=== PATIENT | male | born 1980 | race Caucasian/White ===

== ENCOUNTER 2024-09-02 17:31 | Emergency (ER) | payer OTHER ==
[~2024-09-02] VITALS: Ht 185.4 cm; Wt 86.3 kg
--- NOTE | 2024-09-02 17:55 | RADIOLOGY REPORT ---
EXAM: XR Right Wrist Complete, 3 or More Views CLINICAL INDICATION: WRIST PAIN RIGHT TECHNIQUE: Frontal, lateral and oblique views of the right wrist. COMPARISON: None FINDINGS: BONES/JOINTS: See below. SOFT TISSUES: Soft tissue swelling without acute fracture. No radiopaque foreign body. OTHER FINDINGS: . IMPRESSION: 1. Soft tissue swelling without acute fracture. 2. If symptoms persist, further evaluation with CT is recommended.
--- NOTE | 2024-09-02 19:51 | Physician Documentation ---
History of Present Illness ~ Chief Complaint: Wrist pain Stated Complaint: WRIST PAIN Time Seen by MD: 19:22 OK to notify your PCP?: Yes Primary Medical Doctor: none Source: patient Mode of Arrival: POV Exam Limitations: no limitations HPI A 43-year-old male who comes in complaining of injury to his right wrist and hand that happened while at work earlier today. The patient was states that he was tightening a large spring on an industrial self closing door that came undone hitting him in the right wrist and hand. Most of his pain is in the distal forearm proximal to the radiocarpal joint where he has swelling. He also has not abrasion of the extensor base of the right small finger. He was having pain with moving his wrist, pronating his forearm and the opening and closing his hand. No active hemorrhaging. Last Tdap is unknown. Denies pain of the proximal forearm or elbow Tetanus within 5 years: No Medication Reconciliation Allergies: Coded Allergies: No Known Allergies (Unverified , 12/22/09) Physical Exam Vital Signs: Temperature: 98.0, Heart Rate: 61, Respiratory Rate: 15, BP: 146/78, Pulse Oximetry: 96, Weight: 86.300 Oxygen Flow Rate: 0 Pulse Oximetry Reflects: adequate oxygenation General Appearance: alert, WD/WN, no apparent distress Wrist To inspection of the right wrist/distal radius and ulna there is edema of the distal forearm most pronounced on the radial aspect. No obvious step-off deformity or crepitus to palpation of the area. The patient was decreased range of motion of the forearm with pronation supination. No issues with flexion- extension of the elbow. Mild tenderness to palpation of the radiocarpal joint without obvious deformity or crepitus. No anatomical snuffbox tenderness. No tenderness to palpation of the carpals with the hand. The right radial pulses 2+ Hand To inspection of the right hand the patient has not abrasion overlying with the extensor aspect of the MCP joint of the small finger. No crepitus deformity palpation of the carpals, metacarpals or distal phalanges. No anatomical snuffbox tenderness. He was decreased range of motion of the hand with opening and closing secondary to subjective pain. Cap refill less than 2 seconds and brisk in the digits of the right hand. Progress Results/Orders Reviewed/noted all lab results: Yes Results/Orders Completed Orders - FRANKI PHAN Tetanus/Pertuss/Diph Acell/Pf (Boostrix (09/02/24 19:45) Vital Signs 09/02/24 17:32 Temp 98.0 Pulse 61 Resp 15 B/P (MAP) 146/78 Pulse Ox 96 O2 Flow Rate 0 EKG/XRAY/CT/US/VASC/MRI Bone/Soft Tissue X-Ray (Ext.) : Interpreted By: self Additional Comment X-ray right wrist three-view interpreted by me: Soft tissue swelling of the evidence of fracture. No dislocation. No obvious radiopaque foreign body Medical Decision Making Findings The patient's hand was quite swollen from in his work so we had his hand cleansed and cleansed the abrasion in his right small finger. The area was then wrapped with a nonadherent sterile gauze dressing and I had the patient placed in a Velcro volar wrist splint and gave him a sling. I instructed him to ice and elevate the wrist and hand frequently and take ibuprofen or Tylenol for pain. Tdap was updated by the nursing staff Additional Comment Right wrist contusion. Rule alternate wrist fracture. Right hand contusion. Right hand abrasion Departure Disposition: HOME / SELF CARE / HOMELESS Impression: Primary Impression: Contusion of right wrist Additional Impressions: Contusion of right hand Abrasion of right hand Condition: Stable Discharge Instructions: Wrist Pain, Adult Additional Instructions: X-rays did not show evidence of fracture fortunately. You do have lot of swelling so he will need to ice the area for 20 minutes every 2 hours for the 1st three days and try to elevate over the level of the heart as much as possible. Use the wrist brace for some support. Gently cleansed the wound on the hand at the base of the small finger and covered daily with a Band-Aid. Take ibuprofen or Tylenol for pain. Follow up with the primary care physician for recheck in the next one or two days and return to the ER for any worsening or concerning symptoms Referrals: NO PRIMARY CARE PROVIDER (PCP) Signature Scribe Signature: No scribe Attestation: The note accurately reflects work and decisions made by me.Franki CONNELLY 09/02/24 19:52 FRANKI PHAN Sep 02, 2024 19:51
[2024-09-02] MEDS: TETanus/Pertussis (Acell)/Diphther VAC/PF (Tdap-Adult) 0.5ml syringe IMVAC ONE (20:24)
[2024-09-02 20:25] VITALS: BP 140/68; PULSE 60; RESP 18; TEMP 98.6; O2SAT 99
== END 2024-09-02 20:26 | disposition home or self-care (01) ==
LOC: ER 17:31
DX: S60.211A Contusion of right wrist, initial encounter (principal); S60.221A Contusion of right hand, initial encounter; W22.09XA Striking against other stationary object, initial encounter; Y93.89 Activity, other specified; Y92.89 Other specified places as the place of occurrence of the external cause; Y99.8 Other external cause status
CPT/HCPCS: 29125; 73110; 90471; 90715; 99283; A6449